=== PATIENT | female | born 1990 | race African-American/Black ===

== ENCOUNTER 2017-01-14 11:20 | Emergency (ER) | payer OTHER ==
[~2017-01-14] VITALS: Ht 152.4 cm; Wt 90.7 kg
[2017-01-14] MEDS ORDERED: TESSALON PERLE100 MG PO (12:02)
== END 2017-01-14 12:36 | disposition home or self-care (01) ==
LOC: ER 11:20
DX: J06.9 Acute upper respiratory infection, unspecified (principal); B34.9 Viral infection, unspecified